=== PATIENT | male | born 1955 | race Caucasian/White ===

== ENCOUNTER 2024-05-30 01:42 | Observation (INO) | payer MEDICARE, BC ==
[2024-05-30 02:40] LABS: #Basophils 0.03 10x3/uL (0.0-0.2); %Basophils 0.3 % (0.0-1.0); %Eosinophils 0.4 % (0.0-10.0); %Lymphocytes 7.5 % (21.0-51.0); %Neutrophils 81.5 % (42.0-75.0); Hematocrit 34.8 % (42.0-52.0); Hemoglobin 11.6 g/dL (14.0-18.0); Mean Corpuscular HGB CONC 33.3 g/dL (32.0-36.0); Mean Corpuscular Volume 96.1 fL (78.0-98.0); Mean Platelet Volume 9.8 fL (7.4-10.4); Platelet Count 143 10x3/uL (130-400); RBC Distribution Width 13.6 % (11.5-14.5); Red Blood Cell (RBC) Count 3.62 mill/uL (4.70-6.10)
[2024-05-30 02:51] LABS: Lipase 45 U/L (8-78)
[2024-05-30 02:54] LABS: ALT (SGPT) 55 U/L (Less than 45); AST (SGOT) 82 U/L (11-34); Acetaminophen Less than 10 mcg/mL (Less than 10); Albumin 3.6 g/dL (3.1-4.5); Alcohol 108.9 mg/dL (Less than 10); Alkaline Phosphatase 51 U/L (40-110); Anion Gap 20 mmol/L (10-20); BUN (Urea Nitrogen) 19 mg/dL (8.4-25.7); Bilirubin, Total 0.8 mg/dL (0.3-1.2); Calc. Creatinine Clearance 0 mL/min (70-130); Calcium 8.5 mg/dL (7.8-10.44); Carbon Dioxide 21 mmol/L (23-31); Chloride 102 mmol/L (98-107); Estimated GFR 94; Globulin 2.7 g/dL (2.4-3.5); Glucose 108 mg/dL (80-115); Potassium 3.6 mmol/L (3.5-5.1); Protein, Total 6.3 g/dL (5.8-8.1); Salicylate Less than 8.0 mg/dL (Less than 8.0); Sodium 139 mmol/L (136-145)
[2024-05-30 02:55] LABS: PTT 23.5 sec (22.9-36.1)
[2024-05-30 02:56] LABS: INR-International Normal Ratio 1.2; Prothrombin Time 14.9 sec (12.0-14.7)
[2024-05-30] MEDS ORDERED: Pantoprazole 40 MG VIAL ONE ×2 (04:00→09:49)
[2024-05-30 04:39] LABS: Amphetamine Not Detected (NotDetected); Barbiturates Screen Not Detected (NotDetected); Benzodiazepine Screen Not Detected (NotDetected); Cocaine Metabolite Screen Not Detected (NotDetected); Methadone Not Detected (NotDetected); Methamphetamine Not Detected (NotDetected); Opiate Screen Not Detected (NotDetected); Oxycodone Screen Not Detected (NotDetected); Phencyclidine (PCP) Not Detected (NotDetected); THC/Cannabinoid Screen Not Detected (NotDetected); Tricyclic Screen Not Detected (NotDetected)
[2024-05-30] MEDS ORDERED: Sodium Chloride 0.9% 200 ML ONE (05:42)
[2024-05-30] MEDS ORDERED: Thiamine HCl 200 MG/2 ML VIAL ONE ×2 (05:42→09:48)
[2024-05-30] MEDS ORDERED: cefTRIAXone (ROCEPHIN) 1 GM VIAL ONE (05:42)
[2024-05-30] MEDS ORDERED: Ondansetron PF 4 MG/2 ML Vial ONE (07:50)
[2024-05-30] MEDS ORDERED: Lorazepam 1 MG TAB PO PRN (07:55)
[2024-05-30] MEDS ORDERED: Ondansetron ODT 4 MG TAB PO PRN (07:55)
[2024-05-30] MEDS ORDERED: Electrolyte Replacement Protocol 1 EACH FS SCH (08:00)
[2024-05-30] MEDS: Ondansetron PF 4 MG/2 ML Vial IVP PRN (08:00)
[2024-05-30 08:18] LABS: Magnesium 1.4 mg/dL (1.6-2.6)
[2024-05-30] MEDS ORDERED: Magnesium 2 GM/50 ML BAG (IN WATER) ONE (08:45)
[2024-05-30] MEDS ORDERED: Lorazepam 2 MG/ML VIAL ONE (08:57)
[2024-05-30] MEDS: Lorazepam 1 MG TAB PO SCH (09:02)
[2024-05-30] MEDS: Magnesium 2 GM/50 ML(in water) 2 GM in Premix 1 BAG IVPB SCH (09:03)
[2024-05-30] MEDS: Lorazepam 2 MG/ML VIAL IM PRN (09:05)
[2024-05-30] MEDS: Pantoprazole 40 MG VIAL IVP SCH (10:05)
[2024-05-30] MEDS: Thiamine HCl 200 MG/2 ML VIAL SLOW IVP SCH (10:05)
[2024-05-30] MEDS ORDERED: PROPOFOL 20 ML ONE (11:31)
[2024-05-30] MEDS ORDERED: fentaNYL PF 100 MCG/2 ML SYRINGE ONE (11:31)
[2024-05-30] MEDS ORDERED: SUCCINYLCHOLINE/SOD CL,ISO/PF 200 MG/10 ML SYRINGE FS ONE (11:31)
[2024-05-30] MEDS ORDERED: Lidocaine 1% PF 5 ML VIAL ONE (11:46)
[2024-05-30 12:32] LABS: Hep C IgG Ab NONREACTIVE S/CO (NonReactive); Hep C Index 0.22 S/CO (0-0.79)
[2024-05-30] MEDS ORDERED: Iopamidol-370 76% 500 ML MDV (1 ML CHARGE) ONE (13:44)
[2024-05-30] MEDS: Folic Acid 1 MG TAB PO SCH (15:26)
[2024-05-30] MEDS: Multivit, Therapeutic 1 TAB PO SCH (15:26)
[2024-05-30] MEDS: Sodium Chloride 0.9% 1,000 ML IV SCH (16:54)
[2024-05-30] MEDS: Acetaminophen 325 MG TAB PO PRN (21:12)
[2024-05-31 04:22] LABS: #Basophils Less than 0.03 10x3/uL (0.0-0.2); %Basophils 0.4 % (0.0-1.0); %Lymphocytes 14.7 % (21.0-51.0); %Monocytes 14.9 % (0.0-10.0); %Neutrophils 67.6 % (42.0-75.0); Hematocrit 29.1 % (42.0-52.0); Mean Corpuscular HGB CONC 34.4 g/dL (32.0-36.0); Mean Corpuscular Hemoglobin 32.9 pg (27.0-31.0); Mean Corpuscular Volume 95.7 fL (78.0-98.0); Platelet Count 136 10x3/uL (130-400); Red Blood Cell (RBC) Count 3.04 mill/uL (4.70-6.10)
[2024-05-31 04:55] LABS: ALT (SGPT) 35 U/L (Less than 45); AST (SGOT) 47 U/L (11-34); Alkaline Phosphatase 46 U/L (40-110); Anion Gap 12 mmol/L (10-20); BUN (Urea Nitrogen) 17 mg/dL (8.4-25.7); Bilirubin, Total 1.1 mg/dL (0.3-1.2); Calc. Creatinine Clearance 95 mL/min (70-130); Carbon Dioxide 23 mmol/L (23-31); Chloride 109 mmol/L (98-107); Estimated GFR 95; Globulin 2.6 g/dL (2.4-3.5); Glucose 79 mg/dL (80-115); Magnesium 1.7 mg/dL (1.6-2.6); Potassium 3.9 mmol/L (3.5-5.1); Protein, Total 5.6 g/dL (5.8-8.1); Sodium 140 mmol/L (136-145)
[2024-05-31 04:59] LABS: HBsAg Index 0.25 S/CO (0-0.99); Hep B Surf Ag NONREACTIVE S/CO (NonReactive)
[2024-05-31] MEDS: Magnesium 2 GM/50 ML(in water) 2 GM in Premix 1 BAG IVPB SCH (08:30)
[2024-05-31] MEDS: Lisinopril 20 MG TAB PO SCH (08:31)
[2024-05-31 16:03] VITALS: BMI 24.8
[2024-05-31] MEDS: Lorazepam 1 MG TAB PO PRN (22:55)
[2024-06-01 04:17] LABS: #Basophils Less than 0.03 10x3/uL (0.0-0.2); %Basophils 0.2 % (0.0-1.0); %Eosinophils 2.3 % (0.0-10.0); %Lymphocytes 11.5 % (21.0-51.0); %Monocytes 16.1 % (0.0-10.0); %Neutrophils 69.6 % (42.0-75.0); Hematocrit 29.4 % (42.0-52.0); Mean Corpuscular Hemoglobin 31.8 pg (27.0-31.0); Mean Corpuscular Volume 93.6 fL (78.0-98.0); Mean Platelet Volume 11.2 fL (7.4-10.4); Platelet Count 127 10x3/uL (130-400); RBC Distribution Width 13.3 % (11.5-14.5); Red Blood Cell (RBC) Count 3.14 mill/uL (4.70-6.10)
[2024-06-01 04:33] LABS: Phosphorus 3.3 mg/dL (2.5-4.5)
[2024-06-01 04:34] LABS: Anion Gap 11 mmol/L (10-20); BUN (Urea Nitrogen) 8 mg/dL (8.4-25.7); Calc. Creatinine Clearance 106 mL/min (70-130); Calcium 8.3 mg/dL (7.8-10.44); Carbon Dioxide 22 mmol/L (23-31); Chloride 107 mmol/L (98-107); Estimated GFR 98; Glucose 101 mg/dL (80-115); Magnesium 1.9 mg/dL (1.6-2.6); Potassium 3.7 mmol/L (3.5-5.1); Sodium 136 mmol/L (136-145)
[2024-06-01] MEDS ORDERED: Lorazepam 1 MG TAB PO PRN (07:55)
[2024-06-01] MEDS: Magnesium 2 GM/50 ML(in water) 2 GM in Premix 1 BAG IVPB SCH (08:02)
[2024-06-01] MEDS: Lorazepam 0.5 MG TAB PO SCH (08:03)
[2024-06-01 14:16] VITALS: BP 133/77; TEMP 98.6
[2024-06-02] MEDS ORDERED: Lorazepam 0.5 MG TAB PO PRN (07:55)
[2024-06-02] MEDS ORDERED: FLU (Fluad Triv) TS24-25 (65UP)/MF59C/PF 45 MCG/0.5 ML Syringe IM ONE (09:00)
[2024-06-02] MEDS ORDERED: Thiamine 100 MG TAB PO SCH (09:00)
== END 2024-06-01 14:17 | disposition home or self-care (01) ==
LOC: ERS 01:42 → ERHOLD 06:06 → PCU 13:22
PROVIDERS: ADMIT Internal Medicine; ATTEND Family Medicine
PROC: 0D768ZZ Dilation of Stomach, Via Natural or Artificial Opening Endoscopic (ICD-10-PCS; principal; 2024-05-30)
PROC: 0D7A8ZZ Dilation of Jejunum, Via Natural or Artificial Opening Endoscopic (ICD-10-PCS; 2024-05-30)
DX: K21.00 Gastro-esophageal reflux disease with esophagitis, without bleeding (principal); K31.1 Adult hypertrophic pyloric stenosis; K22.6 Gastro-esophageal laceration-hemorrhage syndrome; I10 Essential (primary) hypertension; D64.9 Anemia, unspecified; R79.89 Other specified abnormal findings of blood chemistry; F17.200 Nicotine dependence, unspecified, uncomplicated; F10.20 Alcohol dependence, uncomplicated; Y90.9 Presence of alcohol in blood, level not specified; Z79.899 Other long term (current) drug therapy
CPT/HCPCS: 43245; 70450; 74177; 80048; 80053 ×2; 80306; 80307; 83690; 83735 ×3; 84100 ×2; 85025 ×3; 85610; 85730; 86803; 87340; 96365; 96367; 96375; 96376; 99285; G0378; J0696; J2060; J2405; J2470 ×3; J2704; J3411 ×2; J3475 ×3; Q9967; 36415